=== PATIENT | female | born 1955 | race Caucasian/White ===

== ENCOUNTER 2020-11-26 05:45 | Observation (INO) ==
--- NOTE | 2020-11-19 13:37 | Anesthesiology Consultation ---
Date of Service November 19, 2020 Assessment & Plan (1) Encounter for pre-operative examination: COVID Status: As of 11/11 nurse assessment, patient denies travel to endemic area, known exposure/sick contacts, or symptoms of COVID19. Preoperative COVID19 testing to be completed prior to surgery per surgeon's arrangements. BSG AM DOS Chart Review Chart Review: Acceptable Risk for Surgery and Patient NOT seen in Pre Admission Testing History Surgery Operation Date: 11/26/20 07:30 Proposed Procedures p Panniculectomy - Rissa Galeano MD Height/Weight Height: 5 ft 1 in Weight: 83.915 kg Allergies Allergy/AdvReac Type Severity Reaction Status Date / Time No Known Allergies Allergy Mild Verified 11/11/20 09:09 Medications Home Medications Medication Instructions Recorded Confirmed Last Taken blood sugar diagnostic #100 ea 05/04/19 11/13/20 Unknown bupropion HCl 300 mg 24 hr tablet, 300 mg PO QAM #90 tab 05/04/19 11/13/20 Unknown extended release sertraline 100 mg tablet 200 mg PO QAM tab 05/11/19 11/13/20 Unknown metformin 500 mg tablet,extended 500 mg PO BID #180 tab 12/25/19 11/13/20 Unknown release 24hr pantoprazole 40 mg tablet,delayed 40 mg PO BID #90 tab 03/21/20 11/13/20 Unknown release albuterol sulfate 90 mcg/actuation 2 puffs INH QID PRN #18 gm 03/24/20 11/13/20 Unknown aerosol inhaler rosuvastatin 20 mg tablet 20 mg PO HS #90 tab 03/24/20 11/13/20 Unknown lancets 21 gauge #100 ea 06/04/20 11/13/20 Unknown amlodipine 10 mg tablet 10 mg PO QAM #90 tab 07/22/20 11/13/20 Unknown clonidine HCl 0.2 mg tablet 0.2 mg PO .COMPLEX #90 tab 09/04/20 11/13/20 Unknown hydrocodone 10 mg-acetaminophen 1 tab PO Q6H #120 tab 10/20/20 11/13/20 Unknown 325 mg tablet oxycodone 60 mg tablet,crush 60 mg PO Q12H #60 tab 10/20/20 11/13/20 Unknown resistant,extended release 12 hr alprazolam [Xanax] 1 mg PO TID 11/11/20 11/13/20 Unknown fenofibrate nanocrystallized 48 mg PO HS 11/11/20 11/13/20 Unknown levothyroxine [Synthroid] 125 mcg PO HS 11/11/20 11/13/20 Unknown benazepril 40 mg tablet 40 mg PO QAM #90 tab 11/18/20 Unknown carisoprodol 350 mg tablet 350 mg PO TID PRN #90 tab 11/18/20 Unknown furosemide 20 mg tablet 20 mg PO BID #180 tab 11/18/20 Unknown nystatin 100,000 unit/gram topical 1 applic TOPICAL BID #15 g 11/18/20 Unknown powder sumatriptan succinate 100 mg tablet 100 mg PO .COMPLEX PRN #14 tab 11/18/20 Unknown Past Medical History Medical History (Updated 11/19/20 @ 13:33 by Colin Waite) Anxiety Arthropathy 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 Followed by pulm (Dr. Vasquez). Gets CT scans every June. Bulging lumbar disc Cardiac murmur PT WAS TOLD "VERY FAINT"BY ANESTHESIA WITH LAST COLONOSCOPY/EGD. No murmur noted on exams with most recent PCP office visits and surgeon's office visits. Chronic obstructive pulmonary disease RESCUE INHALER PRN>HAS NOT USED IN A WHILE Chronic pain syndrome Depression Diabetes mellitus, type 2 Well-controlled, A1C 6.0% 08/2020. Diverticulosis Dysphagia Fatty liver GERD without esophagitis Goiter Hyperlipidemia Hypertension Hypothyroidism Lymphadenopathy, mediastinal Migraine LAST ONE LAST WEEK Nodule of right lung Obesity Osteoarthritis Ovarian cyst Pancreatitis X 1 EVENT Renal lesion Restless leg syndrome Seizure 1 EVENT D/T XANAX "IN MY 20'S"-NO ISSUES SINCE Senile cataract Past Family History Family History Father Family hx of colon cancer Sister Family hx colonic polyps Mother Stroke Hypercholesterolemia Hypertension Daughter Cervical cancer Uterine cancer Past Surgical History Surgical History (Updated 11/11/20 @ 09:39 by Irene Holden RN) Cervical vertebral fusion 09/2018 [facility] H/O: hysterectomy History of bilateral tubal ligation History of bronchoscopy History of colonoscopy History of esophagogastroduodenoscopy (EGD) History of tonsillectomy History of tooth extraction S/P carpal tunnel release RIGHT Social History Smoking Status: Never smoker Do You Dip or Chew Tobacco: No Hx Alcohol Use: Yes Alcohol type: beer alcohol intake frequency: other Alcohol Intake Frequency Comment: 1 DAY A WEEK Hx Substance Use: Yes substance use type: prescription drug Testing Laboratory Results 11/13/20 WBC: 8.83 H/H: 14.1/42.7 PLATELETS: 279 SODIUM: 139 POTASSIUM: 3.8 CHLORIDE: 104 CO2: 32 BUN: 12 CREATININE: 0.91 GLUCOSE: 107 PT: 11.9 PTT: 26.4 INR: 1.1 TSH (10/22/20) : 5.090 Electrocardiogram Date: 11/13/20 Findings: + SB @ (56bpm) Nonspecific ST abnormality.
[2020-11-26] MEDS ORDERED: LR 15ML/HR IV SCH (06:00)
[2020-11-26] MEDS ORDERED: ceFAZolin 2000MG 2,000 MG/15 ML SYR IV SCH (06:00)
[2020-11-26] MEDS ORDERED: MIDAZOLAM HCL 1 MG/ML 2ML VIAL ONE (06:31)
[2020-11-26] MEDS ORDERED: DEXAMETHASONE SOD INJ 4 MG/ML VIAL ONE (06:32)
[2020-11-26] MEDS ORDERED: ONDANSETRON INJ 2 MG/ML 2 ML VIAL ONE (06:32)
[2020-11-26] MEDS ORDERED: ROCURONIUM BROMIDE 10 MG/ML 5 ML VIAL IV ONE ×2 (06:32→09:24)
[2020-11-26] MEDS ORDERED: LIDOCAINE HCL 2% 2 ML VIAL/AMP(20MG/ML) INFIL ONE (06:32)
[2020-11-26] MEDS ORDERED: fentaNYL citrate 100 MCG/2 ML VIAL ONE ×2 (06:32→09:26)
[2020-11-26] MEDS ORDERED: GLYCOPYRROLATE 0.2 MG/ML VIAL ONE (06:32)
[2020-11-26] MEDS ORDERED: PROPOFOL IV EMULSION 10 MG/ML 20 ML VIAL IV ONE (06:32)
[2020-11-26] MEDS ORDERED: NEOSTIGMINE METHYLSULFATE 5 MG/5 ML SYR ONE (06:33)
--- NOTE | 2020-11-26 07:06 | History & Physical Bridge Note ---
Date of Service November 26, 2020 History & Physical Bridge Note I have examined the patient, reviewed the History & Physical and in the interval since the performance of the History & Physical I have noted the following changes of clinical significance: patient with rash on thighs, undersurface of pannus, using antifungal cream. Rash is mild, does not have appearance of candidal infection, will order diflucan but feel it is reasonable to proceed.
[2020-11-26] MEDS ORDERED: FLUCONAZOLE 100 MG/50 ML BAG IV SCH (07:15)
[2020-11-26] MEDS ORDERED: LIDOCAINE/EPINEPHRINE 1% 20 ML VIAL ONE (07:25)
[2020-11-26] MEDS ORDERED: BUPIVACAINE 0.25% 30 ML VIAL ONE (07:25)
[2020-11-26] MEDS ORDERED: ATROPINE SULFATE 0.1 MG/ML 10ML SYR IV PRN (08:00)
[2020-11-26] MEDS ORDERED: ONDANSETRON INJ 2 MG/ML 2 ML VIAL IV PRN ×2 (08:00→12:07)
[2020-11-26] MEDS ORDERED: ePHEDrine sulfate 50 MG/ML AMP IV PRN (08:00)
[2020-11-26] MEDS ORDERED: METOCLOPRAMIDE HCL INJ 5 MG/ML 2 ML VIAL ONE (08:12)
[2020-11-26] MEDS ORDERED: ePHEDrine sulfate 50 MG/ML AMP ONE (08:29)
[2020-11-26] MEDS ORDERED: SODIUM CHLORIDE 0.9% INJ 10 ML VIAL ONE (08:29)
[2020-11-26] MEDS ORDERED: FAMOTIDINE/PF 20 MG/2 ML VIAL IV ONE (08:30)
[2020-11-26] MEDS ORDERED: ALBUTEROL HFA INHALER 8.5 GM ONE (09:27)
--- NOTE | 2020-11-26 10:27 | Post Operative Brief Note ---
PG Immediate Post Op with CF Date of Surgery November 26, 2020 Pre & Post Diagnosis Operation Date: 11/26/20 07:30 Pre-Op Diagnosis: Abdominal Pannus, Excess skin of abdomen, Intertrigo Post-Op Diagnosis: Abdominal Pannus, Excess skin of abdomen, Intertrigo I identified the patient and participated in the time-out.: Yes Procedure Operation Date: 11/26/20 07:30 Actual Procedures p Panniculectomy(Not Applicable) - Rissa Galeano MD Surgeon Rissa Galeano MD Disk Recordist Betty Ortez PA-C Estimated Blood Loss 10 Findings Consistent with Post-Op Diagnosis Specimens Specimen Description: A.) pannus Drains Pedroza Catheter and Alden-Colbert Drain (15 round)
--- NOTE | 2020-11-26 10:39 | Operative Report ---
PG Post Operative Report Pre & Post Diagnosis Operation Date: 11/26/20 07:30 Pre-Op Diagnosis: Abdominal Pannus, Excess skin of abdomen, Intertrigo Post-Op Diagnosis: Abdominal Pannus, Excess skin of abdomen, Intertrigo I identified the patient and participated in the time-out.: Yes Procedure Operation Date: 11/26/20 07:30 Actual Procedures p Panniculectomy(Not Applicable) - Rissa Galeano MD Surgeon Rissa Galeano MD Aircraft Pneudraulics Repairer Betty Ortez PA-C Estimated Blood Loss 10 Findings Consistent with Post-Op Diagnosis Specimens pannus Drains FABIANO x2 Anesthesia Type General Complications none Disposition Disposition: Recovery Room Indications overhanging abdominal pannus, intertrigo Description of Procedure Risks, benefits, and alternatives of the procedure were explained to the patient who agreed and signed consent. She was identified and marked in the preoperative holding area. She was brought to the operating room where she was positioned supine and placed under general anesthesia without incident. Pedroza catheter was placed. Surgical site was prepped and draped sterilely. A time-out procedure was performed. I reassessed my markings which included a lower horizontal abdominal incision with the midportion 7 cm above the vulvar commissure. Incision was marked bilaterally to the ASIS. I began by injecting 1% lidocaine with epinephrine along the planned incision. The lower abdominal incision was made using a 15-blade scalpel to incise epidermis and superficial dermis followed by electrocautery to incise deep dermis, subcutaneous fat, Jonny's fascia down to the abdominal wall. Care was taken to bevel superiorly in order to avoid encountering the inguinal region. Electrocautery was used to elevate the anterior abdominal skin flap ligating the perforating vessels with 3-0 Vicryl ties and electrocautery. Dissection was carried up to the level of the umbilicus in the midline. At this point, a 15-blade scalpel was used to circumscribe the umbilicus. A vertical midline incision was then made from the incision to the umbilicus and divided in the midline using electrocautery. The umbilicus was then dissected out using electrocautery down to abdominal wall. The umbilical stalk appeared viable throughout the procedure. In order to facilitate inset of the umbilicus, dissection was continued for about an additional 6 cm superior to the umbilicus. At this point, the bed was flexed and the mid portion of the superior skin flap was inset above the mons pubis using 2-0 Vicryl suture. Skin flaps were marked for excision. A 15-blade scalpel was used to make these incisions and the incision was deepened through dermis, subcutaneous fat, Jonny's fat using electrocautery. Some subscarpal fat was resected directly. A 15 [place] Sukumar drains were placed in the wound bed and brought out through a separate stab incision in the mons pubis. The drains were sutured into place using 3-0 nylon. The umbilicus was brought out through an inverted triangular incision in the abdominal wall. Due to the depth of the bowl of the umbilicus, this was shortened to facilitate closure. This was performed using a curved iris. The umbilicus appeared healthy with bright red bleeding. Wound closure was then begun lateral to medial using 2-0 Vicryl Jonny's fascia sutures, 2-0 Vicryl deep dermal sutures, 2-0 PDO running superficial Quill suture, 3-0 Monocryl running subcuticular suture. Umbilicus was brought out through the inverted triangle incision and was sutured into place using 4-0 ch romic half buried horizontal mattress sutures. The umbilicus was dressed using Xeroform and the incision was dressed using Dermabond Prineo followed by dry dressings and an abdominal binder. Prior to closure, a total of 10 mL of 0.25% Marcaine plain were injected into the fascia as well as along the incisions. The procedure was tolerated well. EBL 10 cc. The patient was awakened and transferred to recovery in satisfactory condition. Betty Ortez was present and scrubbed throughout the entire procedure and was instrumental in providing retraction of the pannus and assisting in simultaneous wound closure. I attest to the content of the Intraoperative Record and any orders documented therein. Any exceptions are noted below.
[2020-11-26] MEDS: fentaNYL citrate 100 MCG/2 ML VIAL IV PRN ×2 (10:55→11:13)
[2020-11-26] MEDS: HYDROmorphone INJ 2 MG/ML SYR/VIAL IV PRN ×2 (11:29→11:40)
[2020-11-26] MEDS ORDERED: diphenhydrAMINE 50 MG/ML VIAL IV PRN (12:07)
[2020-11-26] MEDS ORDERED: LORazepam 0.5 MG TAB PO PRN (12:07)
[2020-11-26] MEDS ORDERED: PROMETHAZINE HCL 12.5 MG in SODIUM CHLORIDE 0.9% 50 ML IV PRN (12:07)
[2020-11-26] MEDS ORDERED: diphenhydrAMINE Capsule 25 MG CAP PO PRN (12:07)
--- NOTE | 2020-11-26 12:38 | Surgery Progress Note ---
Date of Service November 26, 2020 Assessment & Plan (1) S/P panniculectomy: Admission and Anticipated Discharge Date Admission Date: S/P panniculectomy this morning. Drains with appropriate output. Patient to remain in semi khan position in bed today, remove arboleda and ambulate in the AM. Pharmacy consult for glycemic control. All questions answered, anticipate d/c in the AM. Subjective Korina is resting comfortably and has good pain control. VSS Physical Exam Physical Exam: . bed in semi khan position. dressings and binder in place. drains with scant bloody and serous output Results & Data ([facility]) Vital Signs (Past 12 Hours) Vital Signs Temp Pulse Pulse Resp BP BP Pulse Ox 11/26/20 12:10 36.9 C 89 16 149/77 H 95 11/26/20 11:50 84 14 123/54 L 98 11/26/20 11:40 85 13 143/70 H 99 11/26/20 11:30 37.3 C 82 14 182/80 H 94 11/26/20 11:20 83 16 182/92 H 95 11/26/20 11:10 80 12 180/94 H 96 11/26/20 11:00 84 14 177/85 H 100 11/26/20 10:50 88 15 204/89 H 94 11/26/20 10:41 36.8 C 89 16 178/101 H 98 11/26/20 06:22 36.9 C 68 20 158/80 H 98 PG Care Time/CCT Total # of Minutes Spent Total Time Spent with Patient: Total time spent is greater than 50% in coordination of care (as documented) at patient's floor/unit and/or counseling patient: Coding Level of Care Code None Diagnoses S/P panniculectomy Z98.890
[2020-11-26] MEDS ORDERED: PHARMACY GLYCEMIC MGMT CONSULT PRN (12:56)
[2020-11-26] MEDS ORDERED: CARISOPRODOL 350 MG TABLET PO PRN (13:00)
--- NOTE | 2020-11-26 13:12 | Anesthesiology Progress Note ---
Date of Service November 26, 2020 Anesthesia Post Procedure Vital Signs Vital Signs: Temp Pulse Pulse Resp BP BP Pulse Ox 11/26/20 12:36 36.3 C L 86 16 158/60 H 91 11/26/20 12:10 36.9 C 89 16 149/77 H 95 11/26/20 11:50 84 14 123/54 L 98 11/26/20 11:40 85 13 143/70 H 99 11/26/20 11:30 37.3 C 82 14 182/80 H 94 11/26/20 11:20 83 16 182/92 H 95 11/26/20 11:10 80 12 180/94 H 96 11/26/20 11:00 84 14 177/85 H 100 11/26/20 10:50 88 15 204/89 H 94 11/26/20 10:41 36.8 C 89 16 178/101 H 98 11/26/20 06:22 36.9 C 68 20 158/80 H 98 Pain Intensity Bilateral Generalized: Pain Intensity: 3 Abdomen: Pain Intensity: 2 Transfer of Care Handoff Completed per policy Notes Mental Status: alert / awake / arousable and participated in evaluation Patient Amnestic to Procedure: Yes Nausea / Vomiting: adequately controlled Pain: adequately controlled Airway Patency, RR, SpO2: stable & adequate BP & HR: stable & adequate Hydration State: stable & adequate Anesthetic Complications: no major complications apparent and Pt Satisfied with anesthetic care
[2020-11-26] MEDS ORDERED: GLUCOSE 40% GEL 15 GM TUBE PO PRN (13:30)
[2020-11-26] MEDS ORDERED: DEXTROSE 50% 50 ML SYRINGE IV PRN (13:30)
[2020-11-26] MEDS ORDERED: GLUCAGON FOR INJ 1 MG VIAL IM PRN (13:30)
[2020-11-26] MEDS ORDERED: GLUCOSE 10 TABS/TUBE PO PRN (13:30)
[2020-11-26] MEDS ORDERED: CARBOHYDRATES FOR HYPOGLYCEMIA PO PRN (13:30)
[2020-11-26] MEDS: oxyCODONE HCL IR 5 MG TAB (IMMEDIATE RELEASE) PO PRN ×4 (13:32→23:40)
[2020-11-26] MEDS: ALPRAZolam 0.5 MG TABLET PO SCH ×2 (13:33→20:28)
--- NOTE | 2020-11-26 14:11 | Pharmacy Report ---
Pharmacy Glycemic Short Note 2 - Date of Service November 26, 2020 - Glycemic Short BSG Results (Last 24 hours): 11/26/20 11/26/20 11/26/20 06:01 10:43 12:43 POC Glucose 120 H 164 H 159 H OUTPATIENT ANTIDIABETIC REGIMEN: * Metformin 500mg PO BID * HbA1c: 6.0% (09/05/20) ASSESSMENT: * Ms Hale is a 65yo diabetic female POD 0 s/p panniculectomy. * It looks as though patient received Dexamethasone 4mg IV x1 dose pre-op (though not documented on DEC). * Oral antidiabetic meds held on admission and pt started on SQ basal/bolus regimen. One dose of Lantus was ordered post-op, as DXM is expected to contribute to steroid-induced hyperglycemia. * Patient is ordered a diabetic diet. PLAN FOR INPATIENT GLYCEMIC CONTROL: * Hold outpatient oral diabetes medications * Basal insulin * Lantus 10 units SQ x1 dose * Will re-evaluate the need for additional basal insulin tomorrow * Bolus insulin * NovoLog per scale ACHS or Q6hrs while NPO * Goal Range: Low 110 mg/dL - High 140 mg/dL * Correction Factor: 30 mg/dL/unit * Nutritional / Prandial insulin per carb ratio of 1 unit per 15 grams CHO consumed PLAN FOR DISCHARGE: * A1c: 6.0%, which indicates excellent glycemic control * Expect that pt may resume outpt regimen on discharge, as long as she does not report having episodes of hypoglycemia.
[2020-11-26] MEDS: NSS + 20MEQ KCL 20 MEQ/1,000 ML BAG IV SCH ×2 (14:56→22:31)
[2020-11-26] MEDS ORDERED: LANTUS PER UNIT CHARGE SQ ONE (16:30)
[2020-11-26] MEDS: ceFAZolin 2000MG 2,000 MG/15 ML SYR IV SCH ×2 (16:34→23:48)
[2020-11-26] MEDS: INSULIN ASPART 100 UNITS/ML 3 ML PEN SC SCH ×2 (18:20→21:39)
[2020-11-26] MEDS: FUROSEMIDE 20 MG TAB PO SCH (20:16)
[2020-11-26] MEDS: NYSTATIN POWDER 15GM BTL EXT SCH (20:17)
[2020-11-26] MEDS: PANTOprazole 40 MG TAB PO SCH (20:18)
[2020-11-26] MEDS ORDERED: LEVOTHYROXINE SODIUM 125 MCG TABLET PO SCH (21:00)
[2020-11-26] MEDS ORDERED: ROSUVASTATIN CALCIUM 20 MG TAB PO SCH (21:00)
[2020-11-26] MEDS ORDERED: cloNIDine HCL 0.1 MG TAB PO SCH ×2 (21:00)
[2020-11-26] MEDS ORDERED: FENOFIBRATE NANOCRYSTALLIZED 48 MG TABLET PO SCH (21:00)
[2020-11-27] MEDS: ACETAMINOPHEN 325 MG TAB PO PRN ×2 (00:44→07:48)
[2020-11-27] MEDS: oxyCODONE HCL IR 5 MG TAB (IMMEDIATE RELEASE) PO PRN ×2 (04:16→08:24)
[2020-11-27] MEDS: NSS + 20MEQ KCL 20 MEQ/1,000 ML BAG IV SCH (05:29)
[2020-11-27] MEDS: PANTOprazole 40 MG TAB PO SCH (08:08)
[2020-11-27] MEDS: FUROSEMIDE 20 MG TAB PO SCH (08:08)
[2020-11-27] MEDS: ALPRAZolam 0.5 MG TABLET PO SCH (08:24)
[2020-11-27] MEDS: NYSTATIN POWDER 15GM BTL EXT SCH (08:24)
[2020-11-27] MEDS ORDERED: amLODIPine BESYLATE 5 MG TAB PO SCH (09:00)
[2020-11-27] MEDS ORDERED: MULTIVITAMIN TAB PO SCH (09:00)
[2020-11-27] MEDS ORDERED: ENALAPRIL MALEATE 10 MG TAB PO SCH (09:00)
[2020-11-27] MEDS ORDERED: buPROPion XL 300 MG TABCR PO SCH (09:00)
[2020-11-27] MEDS ORDERED: cloNIDine HCL 0.1 MG TAB PO SCH (09:00)
[2020-11-27] MEDS ORDERED: SERTRALINE HCL 100 MG TABLET PO SCH (09:00)
[2020-11-27] MEDS: INSULIN ASPART 100 UNITS/ML 3 ML PEN SC SCH (09:07)
--- NOTE | 2020-11-27 09:42 | Surgery Progress Note ---
Date of Service November 27, 2020 Assessment & Plan (1) S/P panniculectomy: Admission and Anticipated Discharge Date Admission Date: Anticipate d/c today- patient instructed that she must tolerate breakfast, void, and ambulate prior to d/c home. Her IV fluids were d/c. She has outpatient follow-up scheduled for tomorrow Subjective Patient reports good pain control. She had arboleda removed this morning, reports that she has not voided yet. Her vitals were reviewed, patient is hypertensive but asymptomatic. She states this is a normal BP reading for her. She has gotten out of bed, but she has not ambulated. Physical Exam Physical Exam: on exam, her abdominal binder is in place. her dressings have no saturation. her drains have approx 20cc of serousang output. there is no concern for active bleeding Results & Data ([facility]) Vital Signs (Past 12 Hours) Vital Signs Temp Pulse Resp BP BP Pulse Ox 11/27/20 07:50 37.0 C 62 18 176/84 H 90 11/27/20 04:13 36.7 C 65 18 138/74 93 11/26/20 23:07 36.6 C 69 18 157/78 H 92 PG Care Time/CCT Total # of Minutes Spent Total Time Spent with Patient: Total time spent is greater than 50% in coordination of care (as documented) at patient's floor/unit and/or counseling patient: Coding Level of Care Code None Diagnoses S/P panniculectomy Z98.890
--- NOTE | 2020-11-27 15:46 | Discharge Summary ---
Date of Service November 27, 2020 Admission HPI Per Admitting Provider See admission H&P. Patient presenting with abdominal pannus. Admission Exam Per Admitting Provider see admission exam large overhanging abdominal pannus Principal Diagnosis Abdominal Pannus Discharge Exam on exam, her abdominal binder is in place. her dressings have no saturation. her drains have approx 20cc of serousang output. there is no concern for active bleeding Discharge Data Allergies Allergy/AdvReac Type Severity Reaction Status Date / Time morphine AdvReac Severe Headache Verified 11/26/20 06:08 Procedures Performed Operation Date: 11/26/20 07:30 Actual Procedures p Panniculectomy(Not Applicable) - Rissa Galeano MD Hospital Course (1) S/P panniculectomy: Patient presented to [facility] with history of abdominal pannus. She was taken to the OR and underwent panniculectomy. There were no intraoperative complications. She was taken to recovery and transferred to med/surg for observation. On POD#1, she was feeling well. She was tolerating a regular diet and ambulating. She was able to void after catheter was removed. On exam, her vitals were stable. Her incisions were CDI. Her drains had appropriate output. She was discharged home with instructions to follow-up in the office in one day. Total Time Total Time Spent Total Time Spent (In Minutes): 20 Total Time Includes: Examination of the Patient, Discharge Planning, Medication Reconciliation and Communication With Other Providers Discharge Plan Discharge Items Patient Disposition: Home - Self-Care Reason For Visit: Abdominal Pannus Discharge Diagnosis: s/p panniculectomy Activity: As commented below Non-emergency contact: Surgeon Call non-emergency contact if: you have any medication questions, your pain is concerning for you, you have a fever, your wound has increased redness and your wound has increased drainage Follow-up/Referrals: Sung Hogan DO [Primary Care Provider] - Diet: Regular Addtl Attending Provider Instructions: ACTIVITY RECOMMENDATIONS: __Normal activities _x_No bending, lifting or straining. Sleep with head elevated- a recliner may be most comfortable. Do not lay flat or stand straight until it is comfortable __No driving __Driving allowed when you are off pain medications _x_Walking permitted __You should have help at home for ___ days DRESSINGS: __No dressings required _x_Keep dressings dry/in place until first office visit __Remove dressings ___ and leave dressings off __Apply ice ___ days __Remove dressings and reapply garment __Apply antibiotic ointment (Bacitracin, Neosporin, etc) to wounds 3-4 times/day for 10 days BATHING: _x_Keep dressings dry _x_Sponge bathing permitted __Showering permitted _x_No swimming, hot tubs or soaking in a tub MEDICATIONS: Resume previous medications unless instructed otherwise by your surgeon. x__Do not use aspirin, Motrin, Advil or Ibuprofen as these may promote bleeding. Please use Tylenol. _x_Prescription(s) provided: diflucan (for yeast infection) and an antibiotic were sent to your pharmacy today OTHER INSTRUCTIONS: _x_Record drain output 2-3 times per day SPECIAL CARE INSTRUCTIONS: * It is normal to have a mild fever after surgery. If your temperature is higher than 101.5 degrees F, please call the office at [phone]. * Constipation is a typical side effect of pain medication. An [id number]-wjy-qakquyj stool softener will help relieve this. * Leaking around surgical drains may occur and should not cause concern. Sometimes these drains become clogged. If this happens, remove the bulb and milk the clot out of the tube, then replace the bulb. * Drainage from wounds after liposuction is normal and should be expected. Garments will become soiled. You should protect furniture and bedding. This drainage should mostly subside within 2-3 days. Leave garments in place unless instructed to remove them. * If you have unusual drainage from a wound or are concerned you have an infection or have any questions or concerns, please call the office at [phone]. FOLLOW UP VISIT: If not already scheduled, please call the office, , when you return home after surgery to schedule an appointment to be seen in _1__ days. Pending Studies at Discharge: Yes Stand-Alone Forms: My [facility] [place], Opioid Pain Management, Smoking Cessation Medications and DC Order Prescriptions: New fluconazole [Diflucan] 100 mg tablet 100 mg PO DAILY 7 Days Qty: 7 RF: 0 cephalexin [Keflex] 750 mg capsule 500 mg PO TID 7 Days Qty: 14 RF: 0 Continued pantoprazole [Protonix] 40 mg tablet,delayed release (DR/EC) 40 mg PO BID Qty: 90 RF: 3 albuterol sulfate [Ventolin HFA] 90 mcg/actuation HFA aerosol inhaler 2 puffs INH QID PRN (Reason: shortness of breath or wheezing) Qty: 18 RF: 3 rosuvastatin [Crestor] 20 mg tablet 20 mg PO HS Qty: 90 RF: 3 amlodipine 10 mg tablet 10 mg PO QAM Qty: 90 RF: 0 carisoprodol [Soma] 350 mg tablet 350 mg PO TID PRN (Reason: Muscle Spasm) Qty: 90 RF: 0 furosemide [Lasix] 20 mg tablet 20 mg PO BID Qty: 180 RF: 0 sumatriptan succinate 100 mg tablet 100 mg PO .COMPLEX PRN (Reason: Headache) Qty: 14 RF: 0 nystatin 100,000 unit/gram powder 1 applic topical BID Qty: 15 RF: 0 alprazolam [Xanax] 1 mg tablet 1 mg PO TID Qty: 90 RF: 0 oxycodone 60 mg tablet,oral only,ext.rel.12 hr 60 mg PO Q12H Qty: 60 RF: 0 hydrocodone-acetaminophen 10-325 mg tablet 1 tab PO Q6H Qty: 120 RF: 0 (DME) blood sugar diagnostic strip See Dose Instructions .ROUTE .MEDSUPPLY Qty: 100 RF: 3 bupropion HCl [Wellbutrin XL] 300 mg tablet extended release 24 hr 300 mg PO QAM Qty: 90 RF: 3 sertraline [Zoloft] 100 mg tablet 200 mg PO QAM RF: 0 clonidine HCl 0.2 mg tablet 0.2 mg PO .COMPLEX Qty: 90 RF: 3 (DME) lancets [Comfort EZ Lancets] 21 gauge misc See Rx Instructions .ROUTE .MEDSUPPLY Qty: 100 RF: 0 levothyroxine [Synthroid] 125 mcg tablet 125 mcg PO HS RF: 0 fenofibrate nanocrystallized 48 mg tablet 48 mg PO HS RF: 0 benazepril [Lotensin] 40 mg tablet 40 mg PO QAM RF: 0 Discontinued metformin 500 mg tablet extended release 24hr 500 mg PO BID Qty: 180 RF: 3 Discharge Orders: Discharge Order (Routine); Ordered 11/27/20 Ordered By: Betty Ortez Admission Data Admit Date/Time: 11/26/20 11:23 Attending Provider: Rissa Galeano Admit Provider: Rissa Galeano Primary Care Provider: Sung Hogan Other Interventions: Discharge Summary Assessment (RN) Last Done: 11/27/20 10:26 Coding Level of Care Code 68318 OBS Care - Discharge Diagnoses S/P panniculectomy Z98.890
== END 2020-11-27 11:30 | disposition home or self-care (01) ==
LOC: 3N 05:45 → ASU 05:45